=== PATIENT | female | born 1955 | race Caucasian/White ===

== ENCOUNTER 2021-04-29 08:51 | Emergency (ER) | payer OTHER ==
[~2021-04-29] VITALS: Ht 182.9 cm; Wt 79.4 kg
[~2021-04-29 08:51] MED LIST: CARI350; CEFA500; CIPR500 PO; LEVSOD50 PO; METO25ER PO; METO50 PO; PENVK250 PO; Toprol Xl50 MG PO; [UNRECOGNIZED DRUG - OTHER] TP
[2021-04-29 10:15] LABS: BASOPHILS ABSOLUTE AUTO 0.08 K/mm3 (0.00-0.23); BASOPHILS PERCENT AUTO 1 % (0-2); EOSINOPHILS ABSOLUTE AUTO 0.12 K/mm3 (0.00-0.68); EOSINOPHILS PERCENT AUTO 1 % (0-6); Hematocrit 42.4 % (33.0-51.0); Hemoglobin 14.4 g/dL (11.5-16.0); IMMATURE GRAN ABSOLUTE AUTO 0.01 K/mm3 (0.00-0.10); IMMATURE GRAN PERCENT AUTO 0 % (0-1); LYMPHOCYTES ABSOLUTE AUTO 1.64 K/mm3 (0.84-5.20); LYMPHOCYTES PERCENT AUTO 20 % (21-46); MONOCYTES ABSOLUTE AUTO 0.51 K/mm3 (0.16-1.47); MONOCYTES PERCENT AUTO 6 % (4-13); Mean Corpuscular HGB 30.5 pg (26.0-34.0); Mean Corpuscular Volume 90 fL (80-100); Mean Platelet Volume 10.1 fL (9.1-12.4); NEUTROPHILS ABSOLUTE AUTO 5.97 K/mm3 (1.96-9.15); NEUTROPHILS PERCENT AUTO 72 % (41-73); Platelet Count 330 K/mm3 (150-400); RDW Coefficient Variation 11.9 % (11.7-14.2); RDW Standard Deviation 39.1 fL (35.1-46.3); Red Blood Cell Count 4.72 M/mm3 (3.80-5.20); White Blood Cell Count 8.33 K/mm3 (4.00-11.30)
[2021-04-29 10:55] LABS: Alanine Aminotransfer (ALT/SGP 31 U/L (12-78); Albumin/Globulin Ratio 1.1 (0.8-1.8); Alk Phos 117 U/L (50-136); Anion Gap 4 mmol/L (6-16); Aspartate Aminotrans (AST/SGOT 21 U/L (12-37); Bilirubin, Total 0.3 mg/dL (0.1-1.0); Blood Urea Nitrogen 14 mg/dL (8-24); Bun/Creatinine Ratio 18.7 (12.0-20.0); CO2, Blood 29 mmol/L (21-32); Calcium, Blood 9.4 mg/dL (8.5-10.1); Chloride, Blood 107 mmol/L (98-108); Creatinine, Blood 0.75 mg/dL (0.40-1.00); Globulin, Blood 3.8 g/dL (2.2-4.0); Glomerular Filtration Rate >60 (60-); Glucose, Blood 103 mg/dL (70-99); Potassium, Blood 4.4 mmol/L (3.5-5.5); Sodium, Blood 140 mmol/L (136-145); Total Protein, Blood 7.8 g/dL (6.4-8.2); Troponin I <0.015 ng/mL (0.000-0.040)
[2021-04-29 11:21] LABS: Influenza A, PCR NEGATIVE (NEGATIVE); Influenza B, PCR NEGATIVE (NEGATIVE); Resp Syncytial Virus, PCR NEGATIVE (NEGATIVE); SARS-Cov-2 (COVID-19) PCR, MMC NEGATIVE (NEGATIVE)
== END 2021-04-29 12:05 | disposition home or self-care (01) ==
LOC: ER 08:51
PROVIDERS: Physician Assistant
DX: R00.2 Palpitations (principal); E03.9 Hypothyroidism, unspecified; Z79.899 Other long term (current) drug therapy; Z20.822 Contact with and (suspected) exposure to COVID-19
CPT/HCPCS: 0241U; 36415; 71045; 80053; 83690; 83880; 84443; 84484; 85025; 93005; 93010; 93971; 99285-25

== ENCOUNTER 2021-08-06 12:08 | Observation (INO) | payer OTHER ==
[~2021-08-06] VITALS: Ht 182.9 cm; Wt 80.7 kg
[2021-08-06 13:28] LABS: Influenza A, PCR NEGATIVE (NEGATIVE); Influenza B, PCR NEGATIVE (NEGATIVE); Resp Syncytial Virus, PCR NEGATIVE (NEGATIVE); SARS-Cov-2 (COVID-19) PCR, MMC NEGATIVE (NEGATIVE)
--- NOTE | 2021-08-06 15:35 | NUR ---
08/06/21 1534 Lisset Porras PATIENT IS ON SCHEDULED ANTIBIOTICS
--- NOTE | 2021-08-06 19:35 | NUR ---
SHIFT SUMMARY A/O X4. POD0 APPENDECTOMY- 3 LAP SITES WITH STERI STRIPS. UMBILICAL INCISION HAS SCANT AMOUNT OF RED DRAINAGE, OTHERS C/D/I. AWAITING POST OP VOID. TOLERATING PO INTAKE. AMBULATES INDEPENDENTLY. REPORTED TO ONCOMING RN.
--- NOTE | 2021-08-06 19:52 | NUR ---
ALL REQUIRED DOCUMENTATION COMPLETED. UNABLE TO PULL UP AT THIS TIME DUE TO MEDITECH GLITCH. YACHT HAND AND CLINICAL COORDINATOR AWARE.
--- NOTE | 2021-08-07 05:39 | NUR ---
PT A&0X4, PLEASANT AND COOPERATIVE W/ CARE PROVIDED. VSS. PATIENT IS POST OP DAY 1 FOR LAPAROSCOPIC APPENDECTOMY. 3 LAP SITES; UMBILICUS, LLQ, AND SUPRAPUBIC SITES DRESSED W/ STERI STRIPS, EVIDENCE OF SCANT RED DRAINAGE NOTED ON STERI STRIPS, CURRENTLY DRY AND INTACT. PT REPORTS TOLERATING PO FLUID AND FOOD INTAKE, REPORTS FLATUS. PATIENT DENIES ANY NEED FOR PAIN MEDICATION DURING SHIFT. CURRENTLY DRESSED AND RESTING IN HIGH DIXON'S WITH CALL LIGHT IN REACH. WILL MONITOR UNTIL REPORT GIVEN TO DAY SHIFT.
[2021-08-07] MEDS ORDERED: TRAM50 PO (09:06)
[2021-08-07] MEDS ORDERED: AMOCLA875 PO (09:06)
--- NOTE | 2021-08-07 12:14 | NUR ---
A/O X4. IND IN ROOM. VITAL SIGNS STABLE. POD1- LAP APPY. 3X LAP SITES, SCANT AMOUNT OF DRAINAGE. STERI STRIPS IN PLACE. NO PAIN REPORTED. PT REPORTS PASSING FLATUS. TOLERATING PO INTAKE, NO N/V REPORTED. BOWEL TONES ACTIVE. VERBAL AND WRITTEN DISCHARGE ORDERS GIVEN, PT AGREEABLE TO DISCHARGE PLAN. IV REMOVED W/N/L. BELONGINGS GATHERED AND TAKEN OUT WITH PT AT APPROX 1000.
== END 2021-08-07 10:00 | disposition home or self-care (01) ==
LOC: ER 12:08 → SURS 12:09 → ER 14:32 → SURS 14:32
PROVIDERS: Student in an Organized Health Care Education/Training Program; ADMIT Surgery
DX: K35.890 Other acute appendicitis without perforation or gangrene (principal); E03.9 Hypothyroidism, unspecified; E78.5 Hyperlipidemia, unspecified; Z87.891 Personal history of nicotine dependence; Z88.5 Allergy status to narcotic agent; Z88.8 Allergy status to other drugs, medicaments and biological substances; Z79.899 Other long term (current) drug therapy; Z20.822 Contact with and (suspected) exposure to COVID-19
CPT/HCPCS: 0241U; A9270; J1100; J1885; J2250; J2405; J2543; J2704; J2765; J3010; J7120